=== PATIENT | female | born 1980 | race Caucasian/White ===

== ENCOUNTER 2016-06-28 11:02 | Emergency (ER) | payer OTHER ==
--- NOTE | ~2016-06-28 | CR63 ---
[facility] A Service of [facility] RADIOLOGY TEXT RESULTS PATIENT: SHER CAMPBELL LOCATION: SED : 82 UNIT #: [id number] AGE: [address]: Sophie Villegas APRN SEX: F ORDER DR: [id number] [address] [address] [id number] E MR#: [id number] #: [id number] NAME: SHER CAMPBELL : 1980 SEX: F STUDY DATE/TIME: 06/28/2016 11:04 UNIT: SED ROOM: STUDY DESCRIPTION: CR Chest 2 View Attending Physician: Sophie Villegas A.P.R.N. Ordering Physician: Sophie Mendez A.P.R.N. Primary Care Physician: Thao Marrero A.P.R.N. MEDICAL IMAGING REPORT This report is preliminary unless electronic signature is present. EXAM PA and lateral chest. INDICATION Cough starting at 11:00 p.m. last night. Patient also reports lots of mucus and shortness of breath, as well as decreased breath sounds. FINDINGS Comparison made to prior exam and April 17, 2016. Heart size is within normal limits. No pneumothorax or pleural effusion is seen. I am not convinced I can see any acute infiltrates. No aggressive abnormalities are seen IMPRESSION No acute disease. Dictated by... Wendy Alberto M.D. THIS IS AN ELECTRONICALLY VERIFIED REPORT Wendy Alberto M.D. at 06/29/2016 12:58 PM AFF/tmw TD: 06/28/2016 13:38 JOB #: [id number] MEDICAL IMAGING REPORT Page 1 of 1
[~2016-06-28 11:02] MED LIST: BENADRYL IV; BENADRYL PO; BENADRYL25 M1 PO; CALAMINE120 ML TOP; CLEOCIN PO; ELIMITE60 GM TOP; HYDROCORTISONE28 GM TOP; HYDROCORTISONE30 G6 EXT; KEFLEX500 M2 PO; KEFLEX500 MG PO; MEDROL PO; MEDROL4 MG/DOSE- PO; MOTRIN600 MG PO; NO MEDICATIONS; PEPCID PO; PERCOCET5/325 PO; PHENERGAN PO; PREDNISONE PO; PRENATAL MULTIV1 TA1; PRENATAL MULTIV1 TA1 PO; PROVENTIL17 GM INH
== END 2016-06-28 11:47 | disposition home or self-care (01) ==
LOC: SED 11:02
DX: J06.9 Acute upper respiratory infection, unspecified (principal); F17.200 Nicotine dependence, unspecified, uncomplicated
CPT/HCPCS: 71020; 94640; 99283